=== PATIENT | male | born 1965 | race Caucasian/White ===

== ENCOUNTER 2017-11-17 14:08 | Emergency (ER) | payer OTHER ==
--- NOTE | 2017-11-17 14:15 | ER Report ---
History and Physical Time Seen By MD: 14:15 Hx. of Stated Complaint: CP AND VISION CHANGES STARTED OCT 23, NONE AT THIS TIME HPI/ROS CHIEF COMPLAINT: Transient chest pain HISTORY OF PRESENT ILLNESS: This is a 52-year-old male who presents to the emergency department for transient chest pain. Patient states that he's had intermittent chest pain for quite some time. Patient also states he's had some visual changes with lightheadedness in the last couple of weeks, has moved here to [facility] recently but does not have a primary care provider. Patient states that bout maybe one hour prior to arrival he developed some very transient left shoulder pain, decided come in for further evaluation. Patient is not actively painful, no diaphoresis, no nausea or vomiting. No visual changes. No other concerns at this time. REVIEW OF SYSTEMS: Constitutional: No fever, no chills. Eyes: No discharge. ENT: No sore throat. Cardiovascular: As above. Respiratory: No cough, no shortness of breath. Gastrointestinal: No abdominal pain, no vomiting. Genitourinary: No hematuria. Musculoskeletal: As above. Skin: No rashes. Neurological: No headache. Allergies: Coded Allergies: No Known Drug Allergies (Unverified , 11/17/17) Home Meds No Active Prescriptions or Reported Meds Past Medical/Surgical History The patient has a past medical and surgical history of hypothyroidism, splenic surgery, hernia repair, appendectomy, orthopedic surgeries. Reviewed Nurses Notes: Yes Constitutional Vital Sign - Last 24 Hours 11/17/17 11/17/17 11/17/17 11/17/17 14:11 14:15 14:30 14:45 Temp 98.5 Pulse 80 81 90 85 Resp 18 14 12 19 B/P (MAP) 146/102 137/96 (110) Pulse Ox 92 94 91 92 O2 Delivery Room Air 11/17/17 11/17/17 11/17/17 15:00 15:15 15:30 Pulse 80 79 72 Resp 7 20 13 B/P (MAP) 133/84 (100) 128/95 (106) Pulse Ox 87 89 96 Physical Exam General Appearance: The patient is alert, has no immediate need for airway protection and no signs of toxicity. Eyes: Pupils equal and round no pallor or injection. ENT, Mouth: Mucous membranes are moist. Respiratory: There are no retractions, lungs are clear to auscultation. Cardiovascular: Regular rate and rhythm, no murmurs, clicks or rubs. Gastrointestinal: Abdomen is soft and non tender, no masses, bowel sounds normal. Neurological: Alert and oriented 4. Moving all extremities. Following all commands. No focal neuro deficits. Skin: Warm and dry, no rashes. Musculoskeletal: Neck is supple non tender. Extremities are nontender, nonswollen and have full range of motion. DIFFERENTIAL DIAGNOSIS: After history and physical exam differential diagnosis was considered for chest pain including but not limited to myocardial ischemia, pericarditis pulmonary embolus, overuse syndrome of shoulder, chest wall pain, pleural inflammation and pulmonary infectious causes. Medical Decision Making Data Points Result Diagram: 11/17/17 1415 11/17/17 1415 Laboratory Hematology Test 11/17/17 14:15 Red Blood Count 5.58 M/uL (4.00-5.60) Mean Corpuscular Volume 87.3 fL (80.0-96.0) Mean Corpuscular Hemoglobin 30.1 pg (26.0-33.0) Mean Corpuscular Hemoglobin Concent 34.5 g/dL (32.0-36.0) Red Cell Distribution Width 13.3 % (11.5-14.5) Mean Platelet Volume 7.9 fL (7.2-11.1) Neutrophils (%) (Auto) 55.5 % (39.4-72.5) Lymphocytes (%) (Auto) 31.5 % (17.6-49.6) Monocytes (%) (Auto) 8.9 % (4.1-12.4) Eosinophils (%) (Auto) 3.0 % (0.4-6.7) Basophils (%) (Auto) 1.1 % (0.3-1.4) Nucleated RBC Relative Count (auto) 0.2 /100WBC Neutrophils # (Auto) 4.3 K/uL (2.0-7.4) Lymphocytes # (Auto) 2.4 K/uL (1.3-3.6) Monocytes # (Auto) 0.7 K/uL (0.3-1.0) Eosinophils # (Auto) 0.2 K/uL (0.0-0.5) Basophils # (Auto) 0.1 K/uL (0.0-0.1) Nucleated RBC Absolute Count (auto) 0.02 K/uL Sodium Level 140 mmol/L (137-145) Potassium Level 3.9 mmol/L (3.5-5.0) Chloride Level 104 mmol/L (98-107) Carbon Dioxide Level 24 mmol/L (22-30) Blood Urea Nitrogen 17 mg/dl (9-21) Creatinine 1.00 mg/dl (0.66-1.25) Glomerular Filtration Rate Calc > 60.0 Random Glucose 96 mg/dl (75-110) Calcium Level 8.7 mg/dl (8.4-10.2) Total Bilirubin 0.4 mg/dl (0.2-1.3) Aspartate Amino Transf (AST/SGOT) 32 U/L (0-35) Alanine Aminotransferase (ALT/SGPT) 40 U/L (0-56) Alkaline Phosphatase 46 U/L (0-126) Troponin I < 0.012 ng/ml Total Protein 7.3 g/dl (6.3-8.2) Albumin 4.0 g/dl (3.5-5.0) Chemistry Test 11/17/17 14:15 White Blood Count 7.7 k/uL (4.5-11.0) Red Blood Count 5.58 M/uL (4.00-5.60) Hemoglobin 16.8 g/dL (14.0-18.0) Hematocrit 48.7 % (42.0-52.0) Mean Corpuscular Volume 87.3 fL (80.0-96.0) Mean Corpuscular Hemoglobin 30.1 pg (26.0-33.0) Mean Corpuscular Hemoglobin Concent 34.5 g/dL (32.0-36.0) Red Cell Distribution Width 13.3 % (11.5-14.5) Platelet Count 289 K/uL (150-450) Mean Platelet Volume 7.9 fL (7.2-11.1) Neutrophils (%) (Auto) 55.5 % (39.4-72.5) Lymphocytes (%) (Auto) 31.5 % (17.6-49.6) Monocytes (%) (Auto) 8.9 % (4.1-12.4) Eosinophils (%) (Auto) 3.0 % (0.4-6.7) Basophils (%) (Auto) 1.1 % (0.3-1.4) Nucleated RBC Relative Count (auto) 0.2 /100WBC Neutrophils # (Auto) 4.3 K/uL (2.0-7.4) Lymphocytes # (Auto) 2.4 K/uL (1.3-3.6) Monocytes # (Auto) 0.7 K/uL (0.3-1.0) Eosinophils # (Auto) 0.2 K/uL (0.0-0.5) Basophils # (Auto) 0.1 K/uL (0.0-0.1) Nucleated RBC Absolute Count (auto) 0.02 K/uL Glomerular Filtration Rate Calc > 60.0 Calcium Level 8.7 mg/dl (8.4-10.2) Total Bilirubin 0.4 mg/dl (0.2-1.3) Aspartate Amino Transf (AST/SGOT) 32 U/L (0-35) Alanine Aminotransferase (ALT/SGPT) 40 U/L (0-56) Alkaline Phosphatase 46 U/L (0-126) Troponin I < 0.012 ng/ml Total Protein 7.3 g/dl (6.3-8.2) Albumin 4.0 g/dl (3.5-5.0) EKG/Imaging EKG Interpretation 12 lead EKG: Time of EKG 1419. Rhythm: Normal sinus rhythm, ventricular rate 81 bpm. Incomplete right bundle branch block. [place]: normal QRS: normal ST segments: No ST elevation or depression identified. No previous EKGs for comparison. Imaging Location: [facility] - [place] Patient: Luis David : 1965 Visit/Account:[id number] Date of Sevice: 11/17/2017 Exam type: CHEST PA AND LAT History: Chest Pain Comparison: None. Findings: The lungs are free of acute effusions, infiltrates or edema. No evidence of p neumothorax or pneumomediastinum. The cardiac silhouette is normal in size. The trachea is in midline. There are minimal degenerative changes in the midthoracic spine. IMPRESSION: 1. No acute cardiopulmonary process seen Report Dictated By: Janel Howard MD at 11/17/2017 3:06 PM Report E-Signed By: Janel Howard MD at 11/17/2017 3:07 PM GIOVANNI:SUZY ED Course/Re-evaluation Clinical Indication for ER IV: IV Access ED Course The patient was admitted to a room. A history and physical were obtained. Differential diagnoses were considered. After examination and lengthy discussion with the patient, at does appear that the majority of the pain that the patient is experiences in the left shoulder. The patient states that he was encouraged to come into the ER by his family. He recently moved to [place] has no primary care provider. An IV was started. A CBC and CMP were obtained. Negative troponin. Lab studies unremarkable. EKG showing normal sinus rhythm with an incomplete right bundle branch block. Otherwise unremarkable. Two-view chest x- ray was negative for any acute cardiopulmonary process. I did review these olga dies with the patient, I did tell him that the pain that he's experiencing could be secondary to overuse syndrome of his left shoulder. I also recommended that establishing and following up with a primary care provider as soon as possible. Return to the ER for any other concerns or worsening symptoms. I do not believe that the pain that he is experiencing is related to ACS. The patient is in agree ment with this plan of care and discharged home. Decision to Disposition Date: Nov 17, 2017 Decision to Disposition Time: 15:24 Depart Departure Latest Vital Signs Vital Signs Date Time Temp Pulse Resp B/P (MAP) Pulse Ox O2 Delivery O2 Flow Rate FiO2 11/17/17 15:30 72 13 128/95 (106) 96 11/17/17 14:11 98.5 Room Air Impression: Primary Impression: Chest pain of unknown etiology Additional Impression: Acute pain of left shoulder Condition: Improved Disposition: HOME OR SELF-CARE New Scripts No Active Prescriptions or Reported Meds Patient Instructions: Chest Pain (ED), Shoulder Pain (ED) Additional Instructions: I would recommend contacting the [place] office in [place], try to schedule a follow-up appointment with the mobile AR bus here in [place]. I also recommend establishing with a primary care provider locally within the next 1-2 weeks. Drink plenty of water. Get plenty of rest. Return to the emergency department for any other concerns or worsening symptoms. Problem Qualifiers ANGELIKA DAVIS EMAIL ENGINEER-BC Nov 17, 2017 14:15
[2017-11-17] MEDS ORDERED: ASPIRIN 81 MG CHEW PO ONE (14:35)
[2017-11-17 14:44] LABS: PLATELET COUNT, AUTOMATED 289 K/uL (150-450)
--- NOTE | 2017-11-17 15:12 | RADIOLOGY IMAGING REPORT ---
FACILITY: [facility] - [place] PATIENT NAME: Luis David : 1965 MR: [id number] V: [id number] EXAM DATE: ORDERING PHYSICIAN: ANGELIKA DAVIS TECHNOLOGIST: Location: [facility] - [place] Patient: Luis David : 1965 Visit/Account:[id number] Date of Sevice: 11/17/2017 Exam type: CHEST PA AND LAT History: Chest Pain Comparison: None. Findings: The lungs are free of acute effusions, infiltrates or edema. No evidence of pneumothorax or pneumome diastinum. The cardiac silhouette is normal in size. The trachea is in midline. There are minimal degenerative changes in the midthoracic spine. IMPRESSION: 1. No acute cardiopulmonary process seen Report Dictated By: Janel Howard MD at 11/17/2017 3:06 PM Report E-Signed By: Janel Howard MD at 11/17/2017 3:07 PM WSN:[email or web address]
[2017-11-17 15:30] VITALS: BP 128/95
--- NOTE | 2017-11-17 16:20 | EKG ---
[facility] PATIENT NAME: ALANA PALMA : [id number] MR: [id number] V: [id number] EXAM DATE: ORDERING PHYSICIAN: ANGELIKA DAVIS TECHNOLOGIST: JERRELL Test Reason : CHEST PAIN Blood Pressure : / mmHG Vent. Rate : 081 BPM Atrial Rate : 081 BPM P-R Int : 188 ms QRS Dur : 102 ms QT Int : 390 ms P-R-T Axes : 029 -52 010 degrees QTc Int : 453 ms Normal sinus rhythm Incomplete right bundle branch block Left axis deviation Left anterior fascicular block Abnormal ECG No previous ECGs available Confirmed by Camilo Stringer ([id number]) on 11/17/2017 7:47:12 PM Referred By: ANGELIKA Confirmed By:Camilo Chaidez
== END 2017-11-17 15:36 | disposition home or self-care (01) ==
LOC: ER 14:18
DX: R07.9 Chest pain, unspecified (principal); M25.512 Pain in left shoulder
CPT/HCPCS: 71046; 82040; 82247; 82310; 82374; 82435; 82565; 82947; 84075; 84132; 84155; 84295; 84450; 84460; 84484; 84520; 85025; 93005; 99284

== ENCOUNTER → 2018-05-07 | Emergency (ER) | payer OTHER ==
[~2018-05-07] MED LIST: CEPH500T7 PO; NS(*) 0.9% 1000 ML BAG 1,000 ML IV ONE
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
[2018-05-07 17:10] LABS: PLATELET COUNT, AUTOMATED 284 K/uL (150-450)
[2018-05-07 17:32] LABS: INR 0.94
[2018-05-07 18:00] VITALS: BP 151/98
--- NOTE | 2018-05-07 18:07 | RADIOLOGY IMAGING REPORT ---
FACILITY: [facility] PATIENT NAME: Luis David : 1965 MR: [id number] V: [id number] EXAM DATE: ORDERING PHYSICIAN: JAIDA NEELY TECHNOLOGIST: Location: [facility] [place] Patient: Luis David : 1965 Visit/Account:[id number] Date of Sevice: 05/07/2018 US VENOUS LOWER EXT LT HISTORY: Pain, redness medial left calf COMPARISON: None. FINDINGS: Grayscale, duplex and color Doppler interrogation of the left lower extremity deep veins from common femoral vein to proximal calf was completed. The greater saphenous vein in the left proximal thigh wa s evaluated using similar technique. Common femoral vein - Negative. Femoral vein - Negative. Deep femoral vein - Negative. Popliteal vein - Negative. Visualized deep calf veins - Negative. Popliteal fossa: Negative. Greater saphenous vein in the proximal thigh: The left greater saphenous vein is clotted from the mid thigh inferiorly to the mid calf over the area of pain. IMPRESSION: 1. No evidence for left lower extremity DVT. 2. Superficial thrombophlebitis of the left superficial femoral vein from the left mid thigh inferio rly to the left calf. Results were called to JAIDA NEELY at 05/07/2018 6:04 PM. Report Dictated By: Jim Epstein MD at 05/07/2018 5:58 PM Report E-Signed By: Jim Epstein MD at 05/07/2018 6:04 PM WSN:[id number]
== END ==
LOC: ER 15:57
DX: I80.01 Phlebitis and thrombophlebitis of superficial vessels of right lower extremity (principal); K92.1 Melena
CPT/HCPCS: 82274; 85025; 85610; 85730; 93971; 96360; 99284; J7030; 82040; 82247; 82310; 82374; 82435; 82565; 82947; 84075; 84132; 84155; 84295; 84450; 84460; 84520